=== PATIENT | male | born 1955 | race Caucasian/White ===

== ENCOUNTER 2017-03-30 07:46 | Day surgery (SDC) | payer OTHER ==
[2017-03-30] MEDS ORDERED: NS 500 ML IV 500 ML IV ONE (08:03)
[2017-03-30] MEDS ORDERED: TETRACAINE 0.5% OPHTH 1 DOSE AFFEYE ONE ×3 (08:15→11:12)
[2017-03-30] MEDS ORDERED: VIGAMOX 0.5% OPHTH 1 DOSE AFFEYE ONE ×5 (08:20→11:22)
[2017-03-30] MEDS ORDERED: PROLENSA OPHTH 1 DOSE AFFEYE ONE (08:31)
[2017-03-30] MEDS ORDERED: ALPHAGAN-P OPHTH 1 DOSE AFFEYE ONE (08:31)
[2017-03-30] MEDS ORDERED: CYCLOGYL 1% OPHTH 1 DOSE OP ONE ×3 (08:33→08:35)
[2017-03-30] MEDS ORDERED: AK-DILATE 2.5% OPHTH 1 DOSE OP ONE ×3 (08:33→08:35)
[2017-03-30] MEDS ORDERED: MYDRIACIL OPHTH 1 DOSE AFFEYE ONE ×3 (08:33→08:35)
[2017-03-30] MEDS ORDERED: AK-DILATE 10% OPHTH 1 DOSE AFFEYE ONE ×2 (09:36→10:11)
[2017-03-30] MEDS ORDERED: DIPRIVAN VIAL ONE (10:17)
[2017-03-30] MEDS ORDERED: BETADINE OPHTH SOLN 5% EACHEYE ONE (11:03)
[2017-03-30] MEDS ORDERED: ADRENALINE CHL INJ IJ ONE (11:12)
[2017-03-30] MEDS ORDERED: BSS OPHTH (PLAIN) 500 ML with VANCOMYCIN HCL 500 MG VIAL 25 MG, ADRENALINE CHL INJ 1 MG IR ONE ×3 (11:12)
[2017-03-30] MEDS ORDERED: XYLOCAINE-MPF 1% IJ ONE (11:12)
[2017-03-30] MEDS ORDERED: DUOVISC IO ONE (11:12)
[2017-03-30 11:45] VITALS: BP 163/71
== END 2017-03-30 11:46 | disposition home or self-care (01) ==
LOC: SURG1 07:46
PROVIDERS: ATTEND Ophthalmology
PROC: 08RJ3JZ Replacement of Right Lens with Synthetic Substitute, Percutaneous Approach (ICD-10-PCS; principal; 2017-03-30 12:15)
PROC: 08DJ3ZZ Extraction of Right Lens, Percutaneous Approach (ICD-10-PCS; principal; 2017-03-30 12:15)
DX: H25.11 Age-related nuclear cataract, right eye (principal); H25.041 Posterior subcapsular polar age-related cataract, right eye
CPT/HCPCS: A4217; J0170; J3370; J3490